=== PATIENT | female | born 1975 | race African-American/Black ===

== ENCOUNTER → 2016-06-27 | Outpatient (CLI) | payer OTHER ==
[2016-06-27 17:46] LABS: ALANINE AMINOTRANSFERASE 21 U/L (9-52); ASPARTATE AMINO TRANSFERASE 19 U/L (14-36)
== END ==
LOC: OD 16:03
PROVIDERS: ATTEND Podiatrist Foot Surgery
DX: B35.1 Tinea unguium (principal)
CPT/HCPCS: 36415; 84450; 84460

== ENCOUNTER → 2017-12-14 | Outpatient (CLI) | payer OTHER ==
--- NOTE | 2017-12-14 10:41 | WOMENS IMAGING REPORT ---
EXAM DESCRIPTION: U/S PELVIS NON-OB COMPLETED DATE/TIME: 12/14/2017 10:02 am REASON FOR STUDY: LEIOMYOMA OF UTERUS D25.9 LEIOMYOMA OF UTERUS, UNSPECIFIED COMPARISON: None. TECHNIQUE: Dynamic and static grayscale images acquired of the pelvis via transabdominal approach an d recorded on PACS. Additional selected color Doppler and spectral images recorded. LIMITATIONS: None. FINDINGS: UTERUS: Heterogeneous. No definite fibroid identified. ENDOMETRIAL STRIPE: No focal or generalized thickening. No masses. CERVIX: No nabothian cysts. RIGHT OVARY AND DOPPLER: Normal size. No worrisome masses. Normal arterial vascular flow without evid ence for torsion. LEFT OVARY AND DOPPLER: Ovary not visualized. FREE FLUID: None noted. OTHER: No other significant finding. MEASUREMENTS: UTERUS: 10.9 x 6.0 x 6.5 cm ENDOMETRIAL STRIPE: 5 mm RIGHT OVARY: 2.7 x 2.4 x 3.9 cm LEFT OVARY: Not visualized. IMPRESSION: Mildly enlarged heterogeneous uterus. No fibroid identified. TECHNICAL DOCUMENTATION: JOB ID: [id number] [place]- All Rights Reserved Rev Reading location - IP/workstation name: [email or web address]
== END ==
LOC: WI 09:38
PROVIDERS: ATTEND Internal Medicine
DX: D25.9 Leiomyoma of uterus, unspecified (principal)
CPT/HCPCS: 76856